=== PATIENT | male | born 1960 | race Caucasian/White ===

== ENCOUNTER 2024-10-03 06:29 | Inpatient (IN) | payer OTHER, SELFPAY ==
[2024-10-02 22:55] VITALS: BP 184/116
[2024-10-02 23:09] LABS: % Basophils 0.5 % (0-2); % Eosinophils 1.7 % (0-6); % Immature Granulocytes 0.5 % (0-0.5); % Lymphocytes 28.8 % (20.5-51.1); % Monocytes 10.3 % (1.7-9.3); % Neutrophils 58.2 % (42.2-75.2); Absolute Basophils 0.1 10^3/uL (0-0.2); Absolute Eosinophils 0.2 10^3/uL (0-0.7); Absolute Immature Granulocytes 0.1 10^3/uL (0-0.05); Absolute Lymphocytes 2.7 10^3/uL (1.2-3.4); Absolute Neutrophils 5.4 10^3/uL (1.4-6.5); Hematocrit 37.7 % (39.0-52.0); Hemoglobin 12.9 g/dL (13.0-18.0); Mean Corp Hgb Conc. 34.2 g/dL (33.0-37.0); Mean Corpuscular Volume 93.5 fL (80.0-94.0); Mean Platelet Volume 9.4 fL (7.4-10.4); Nucleated Red Blood Cells % 0 % (-); Platelet Count 230 10^3/uL (130-400); Red Blood Cell Count 4.03 10^6/uL (4.70-6.10); Red Cell Dist. Width 12.8 % (11.5-14.5); White Blood Cell Count 9.4 10^3/uL (4.8-10.8)
[2024-10-02 23:18] LABS: INR 0.99; PT 13.6 Sec (11.4-14.6)
[2024-10-02 23:19] LABS: APTT 26.4 Sec (23.4-35.0)
[2024-10-02 23:25] LABS: ALT (SGPT) 23 U/L (0-50); AST (SGOT) 24 U/L (17-59); Albumin 3.9 g/dl (3.5-5.0); Alkaline Phosphatase 64 U/L (38-126); Blood Urea Nitrogen 36 mg/dl (9-20); Calcium 9.3 mg/dl (8.4-10.2); Carbon Dioxide 28 mmol/L (22-30); Chloride 102 mmol/L (98-107); Glucose 179 mg/dl (70-99); Potassium 4.1 mmol/L (3.5-5.1); Sodium 137 mmol/L (135-145); Total Bilirubin 0.4 mg/dl (0.2-1.3); Total Protein 6.3 g/dl (6.3-8.2); eGFR > 60.00
[2024-10-02 23:33] LABS: Troponin I 0.012 ng/ml
[2024-10-03] VITALS (19 sets, daily range): BP systolic 15–164; BP diastolic 83–99; BMI 33.6
[2024-10-03] MEDS: PROTONIX IV 80 MG IV (03:22)
[2024-10-03] MEDS: PROTONIX 100 IV (03:23)
[2024-10-03 03:41] LABS: Hematocrit 37.8 % (39.0-52.0)
--- NOTE | 2024-10-03 03:58 | ED.GENMED ---
History of Present Illness
General
Chief Complaint: Chest Pain
Source: patient
Exam Limitations: none
Time Seen by Provider: 10/03/24 02:12
Nursing documentation reviewed up to this point in time: agreed with
History of Present Illness
History of Present Illness:
64-year-old male that presents with chest pain that awakened him from sleep. Patient has been having 'black tar-like bowel movements 'for the last day. Patient admits to heavy alcohol consumption. He states that yesterday he drank '8 beers and 8
shots'. On a light day he states he might drink 3 beers and 4 shots. He states that he drinks every day. He also takes NSAIDs such as ibuprofen for arthritic pain. Patient states that his bowel movements were soft and malodorous.
Past History
Past History
ED Past Medical History: None
ED Past Surgical History: Orthopedic
Social History
Tobacco: Non-smoker
Alcohol: None
Drug: None
Review of Systems
Review of Systems
Allergies reviewed?: Yes
All Other Systems: ROS reviewed and negative except as documented in HPI and ROS
Constitutional: Reports no symptoms
EENT: Reports no symptoms
Respiratory: Reports no symptoms
Cardiac: Reports chest pain
ABD/GI: Reports black stools
: Reports no symptoms
Musculoskeletal: Reports no symptoms
Skin: Reports no symptoms
Neurological: Reports no symptoms
Endocrine: Reports no symptoms
Hematologic/Lymphatic: Reports no symptoms
Psychiatric: Reports no symptoms
Phy Exam
General Physical Exam
General Presentation: mild distress
General age: appears stated age and appears older than age
General Skin: warm and dry
General Habitus: normal
General Mental: alert
General Hydration: appears well hydrated
ENT Exam
ENT Exam: EOMI, pharynx normal, neck supple and normocephalic
Eye Exam
Eye Exam: PERRL, cornea clear and conjunctiva normal
Cardiovascular Exam
Cardiovascular Exam: regular rate/rhythm
Pulmonary Exam
Pulmonary Exam: lungs clear, no respiratory distress, no rales, no crackles, no rhonchi, no stridor, no wheezing and no cough
Gastrointestinal Exam
Gastrointestinal Exam: normal bowel sounds, non tender, soft, no organomegaly, no pulsatile mass and distended
Palpation: generalized: Minimal tenderness
Rectal Exam: normal sphincter tone and soft stool
Stool: black
Guaiac Status: grossly bloody - positive and positive
Neurological Exam
Neurological Exam: alert, oriented x3, no motor deficits and speech normal
Musculoskeletal Exam
Musculoskeletal Exam: full ROM and no edema
Skin Exam
Skin Exam: normal color, warm/dry, no rash and no petechia
Psychiatric Exam
Psychiatric Exam: normal mood/affect
Scores
Heart Score for Chest Pain Patients
STEMI patient?: Not applicable
Course
Orders/Labs/Results
Orders:
Orders
10/02/24 22:52
EKG [Electrocardiogram (*1)] Urgent
Reason for Study: Chest Pain
EKG- Treatment ONCE
10/02/24 23:01
Type+Screen Urgent
Complete Blood Count/With Diff Urgent
Comprehensive Metabolic Panel Urgent
PTT Urgent
Prothrombin Time Urgent
Troponin I Urgent
10/02/24 23:20
ABO2 Urgent
BBK Wristband Number:
Associate notified that ABO2 has been ordered: [id number]
Date: 10/02/24
Time: 23:22
Expeditionary Fighting Vehicle Crewman ID: [id number]
10/03/24 03:04
IV Insert/Care/Rem.- Treatment PRN
Pantoprazole 80 mg/100 ml Nss [Protonix] 80 mg in 100 ml IV NOW
Pantoprazole [Protonix IV] 80 mg IV NOW STA
10/03/24 03:21
H&H Urgent
Troponin I Urgent
10/03/24 04:09
Octreotide [Sandostatin] 50 mcg IV NOW STA
10/03/24 04:10
IV Insert/Care/Rem.- Treatment PRN
10/03/24 05:00
Flush (0.9% Sodium Chloride) [Flush (Nss)] See Dose Instructions IV PER PROTOCOL
10/03/24 06:07
Admit/Transfer Patient As Directed
Co-Sign Provider:
Level of Care: Inpatient admission
Assign to:: Telemetry
Physician / Group: Cass Sargent
Transfer to: Telemetry
Diagnosis: GI Bleed
Reason for Telemetry: Other
Other Reason for Telemetry: GI Bleed
Date to Stop Telemetry: 10/05/24
Time to Stop Telemetry: 11:00
Reason for Hospitalization: IV medications
Expected length of stay greater than two midnights?: Yes
ELOS- Estimated Length of Stay in days: 2
I certify the patient meets the requirements for IP care: Yes
PRN Pain Medication Management As Directed
May give lesser potent ordered pain med per pt: Yes
preference::
Protocol:: Medication orders for pain may be administered in a
manner that supports deferring to patient preference
when the pt is:
- Requesting an ordered lesser potent pain medication.
Least to most potent pain medications are defined
as: acetaminophen < NSAID < tramadol < opioids
(morphine, oxycodone, hydromorphone).
- Requesting a lesser dose of the same medication IF
ORDERED.
- Requesting a less intrusive route of administration
if both routes are prescribed by the provider (PO <
IV).
10/03/24 06:08
Code Status As Directed
Resuscitation Status: Full Code
10/05/24 11:00
DC Protocol for Telemetry ONCE
Abnormal Lab Results
10/02/24 10/03/24
23:01 03:21
RBC 4.03 L 10^6/uL
(4.70-6.10)
Hgb 12.9 L g/dL
(13.0-18.0)
Hct 37.7 L % 37.8 L %
(39.0-52.0) (39.0-52.0)
MCH 32.0 H pg
(27.0-31.0)
Abs Immat Gran (auto) 0.1 H 10^3/uL
(0-0.05)
Absolute Monos (auto) 1.0 H 10^3/uL
(0.1-0.6)
Monocytes % 10.3 H %
(1.7-9.3)
BUN 36 H mg/dl
(9-20)
Glucose 179 H mg/dl
(70-99)
10/03/24 03:21
10/02/24 23:01
Vital Signs
Initial and Last Documented VS:
Initial Vital Signs
Temp Pulse Resp BP Pulse Ox
98.5 F 119 24 184/116 97
10/02/24 22:55 10/02/24 22:55 10/02/24 22:55 10/02/24 22:55 10/02/24 22:55
Last Documented Vital Signs
Temp Pulse Resp BP Pulse Ox
98.5 F 92 17 154/89 94
10/02/24 22:55 10/03/24 06:00 10/03/24 06:00 10/03/24 06:00 10/03/24 03:00
*Critical Care Note
Total Time (30-74mins, 75-104mins- exclusive of procedures): 40 (Critical care statement: A total of 40 minutes of critical care time was provided for this patient. This time is separate from time utilized to perform the aforementioned documented
procedures. Aggregate critical care time includes only time during which I was engaged in work directl)
Update Note
Update Note:
Blood consent signed by patient and is on the chart.
ED Attending Note
-
Portions of this chart may have been created with voice recognition software.� Occasional wrong word or��sound alike� substitutions may have occurred due to the inherent limitations of voice recognition software.
Discharge Plan
Departure
Patient Disposition: Admit
Date of Disposition: 10/03/24
Time of Disposition: 04:12
Admit to: ICU
Presentation/result/management discussed w/ accepting MD/DO: Hospitalist
Condition: Serious
Discharge Problem:
GI bleed, GI bleed due to NSAIDs, Heavy alcohol use, NSAID long-term use
Interventions
Interventions:
*Risk Screen - Suicide Last Done: 10/02/24 22:55
*General Assessment Last Done: 10/02/24 22:55
*Neglect/Abuse Screening Last Done: 10/02/24 22:55
*ED COVID-19 Vaccine History Last Done: 10/03/24 02:07
ED- Cardiac Assessment Last Done: 10/03/24 02:07
[2024-10-03] MEDS: SANDOSTATIN 50 MCG IV (04:21)
[2024-10-03 04:27] LABS: Troponin I 0.015 ng/ml
--- NOTE | 2024-10-03 05:54 | HPS.HSE ---
Family Physician
-
Family Physician: * NONE
Chief Complaint
-
Melena, hematemesis
History of Present Illness
Is a 64-year-old who denies any significant past medical history presenting to the emergency department with copious melena and episode of hematemesis.
Patient is a regular alcohol drinker, drinks usually about 3 beers and 3 shots nightly but recently had up to 8 shots during the festivities last night. Patient reported afterwards he was feeling well up until been waking up with some mild
abdominal discomfort. He felt he needed to spit up some time and then he had a bowel movement. He said he had a voluminous amount of black tarry stool. He denied feeling dizzy or lightheaded. Having seen this episode he was encouraged to come to
the emergency department. En route to the ED the patient vomited and he thought that he had hematemesis but it was not clear due to poor lighting. On arrival in the emergency department he had another voluminous melanotic bowel movement. He
reports mild bilateral lower quadrant abdominal discomfort. Denies any nausea at this time. Patient denies any prior history of GI bleed. He has no prior endoscopic colonoscopy. He does take NSAIDs regularly. He takes about 800 mg as much as
every 12 hours as needed for arthritis. He smokes tobacco. Denies any illicit drugs and denies any other anticoagulants.
In the ED he was afebrile, blood pressure was 139/87 with a pulse of 110. Was satting 98% on room air. Hemoglobin was 13 normal platelet. INR within normal limits. Electrolytes BUN/creatinine were within normal limits. BUN was relatively
elevated at 36 with a creatinine of 1.0. ECG shows a sinus tachycardia without any acute ST or T wave changes.
Medical History
Past Medical History
Past Medical History: Reports Other (Chronic osteoarthritis)
Past Surgical History: Reports None
Social History
Tobacco: Smoker (1 pack/day)
Alcohol: Daily
Drug: None
Personal: Single
Living: With Roomate
Employment: Retired
Family History
Family History: Not pertinent
Allergies / Home Medications
Allergies reflects when Allergies were last updated in [employer].
Home Medications with original date entered in [employer]
Allergy/Medication List:
Allergies
Allergy/AdvReac Type Severity Reaction Status Date / Time
bee venom protein (honey bee) Allergy Swelling Verified 01/23/20 18:23
Home Medications
ibuprofen 200 mg tablet 800 mg PO Q12 PRN pain 10/03/24
Review of Systems
-
Constitutional: Reports No Symptoms
EENT: Reports No Symptoms
Respiratory: Reports No Symptoms
Cardiac: Reports No Symptoms
Abdomen/GI: Reports Abdominal Pain and Black Stools
: Reports No Symptoms
Musculoskeletal: Reports No Symptoms
Skin: Reports No Symptoms
Neurological: Reports No Symptoms
Endocrine: Reports No Symptoms
Hematologic/Lymphatic: Reports No Symptoms
Psych: Reports No Symptoms
Physical Exam
Vital Signs
Vital Signs
Temp Pulse Resp BP Pulse Ox
98.5 F 101 15 139/87 94
10/02/24 22:55 10/03/24 05:00 10/03/24 05:00 10/03/24 05:00 10/03/24 03:00
Physical Exam
General: Well Developed, Well Nourished, No Apparent Distress and Comfortable
HEENT: NormoCephalic, Anicteric, Moist mucous membranes and Atraumatic
Respiratory: Clear
Cardiac: S1/S2
Breast: Deferred by me
GI: Soft, Non Tender, Non Distended and Normal Bowel Sounds
Rectal: Black and Hem Positive
Genito-urinary: Deferred by me
Musculoskeletal: No Clubbing, No Cyanosis and No Edema
Skin: Warm
Neuro: AO x 3 and Nonfocal/grossly intact
Hematologic/Lymphatic: No Lymphadenopathy
Psych: Calm
Laboratory Results
-
10/03/24 03:21
10/02/24 23:01
Laboratory Results
PT 13.6 Sec (11.4-14.6) 10/02/24 23:01
INR 0.99 10/02/24 23:01
APTT 26.4 Sec (23.4-35.0) 10/02/24 23:01
Total Bilirubin 0.4 mg/dl (0.2-1.3) 10/02/24 23:
AST 24 U/L (17-59) 10/02/24 23:
ALT 23 U/L (0-50) 10/02/24 23:01
Alkaline Phosphatase 64 U/L (38-126) 10/02/24 23:01
Troponin I 0.015 ng/ml 10/03/24 03:21
Data Reviewed
-
Medical Tests (Nuc Med, Echo, EKG etc): Image Personally Visualized and interpreted
Lab Data: Labs Reviewed by me
Old Records: Reviewed
Impression/Plan
-
IMPRESSION:
64-year-old with 1 day history of melena and possibly hematochezia. Black tarry stool. Heme positive black stool on guaiac exam. Hemoglobin is stable. Patient is hemodynamically stable. He has a history of alcohol and NSAID use. Suspect acute
gastritis but cannot rule out bleeding ulcer. He is currently hemodynamically stable and in no acute distress.
PLAN:
1. Upper GI bleed - Suspect acute gastritis versus gastric/duodenal ulcer.
- admit to telemetry
- type and screen and consented
- PPI IV gtt for now
- no h/o liver disease to suggest possible varices at this time
- h/h q 8 and transfuse for rapid Hgb drop or Hgb < 8
- NPO, ice chips and sips
- antiemetics and pain control
- GI consult
2. ETOH use - Denies h/o withdrawal. Drinks regularly. No evidence of acute intoxication or withdrawal at this point.
- low risk mas protocol
- check folate/b12
DVT PPX - SCD
Code status - Full Code
--- NOTE | 2024-10-03 07:22 | CON.GI ---
Consultation
-
Date/Time Consultation Requested: 10/03/24 07
Date/Time Consultation Performed: 10/03/24 08
Requesting Provider: Colin Bush DO
Performing Provider: GANESH Perdomo, Nubia Denise MD
Reason for Consultation: GI bleed
Medical History
Chief Complaint / HPI
Chief Complaint: GI bleed
History of Present Illness:
Pt is a 64yo with hx chronic osteoarthritis on chronic NSAIDs up to Ibuprofen 800mg BID taking several days per week, daily ETOH and tobacco use with onset of abdominal pain along with black tarry stools. On admission noted with hbg 12.9 with BUN
36 and normal INR and LFT's.
In review with patient noted dark stool Sunday and was thinking it was chocolate he ate. He then had further liquid black stool on 10/02 with dizziness prompting ER evaluation. Pt admits to recent change in bowel habits last 1-2 months thought
it may be ETOH related and mild abdominal pain. He did also vomit ? dark material prior to ER evaluation. He otherwise admits to some sinus symptoms but denies dysphagia, GERD, or constipation. No hx EGD or colonoscopy in past.
Past Medical History
Past Medical History: Other (chronic osteoarthritis, ETOH and tobacco abuse, ? undiagnosed sleep apnea, prior imaging with diverticulosis and tiny hepatic/renal lesion too small to characterize )
Social History
Tobacco: Smoker
Alcohol: Daily
Drug: Marijuana (several times per month )
Living: With Roomate
Employment: Not Employed
Family History
Family History: Other (brother with thyroid cancer )
Allergies / Home Medications
Allergy/AdvReac Type Severity Reaction Status Date / Time
bee venom protein (honey bee) Allergy Swelling Verified 01/23/20 18:23
�Medication �Instructions �Recorded
ibuprofen 200 mg tablet 800 mg PO Q12 PRN pain 10/03/24
Review of Systems
-
History Source: Patient
Constitutional: Reports No Symptoms
EENT: Reports No Symptoms
Respiratory: Reports Trouble Breathing (minimal )
Cardiac: Reports No Symptoms
Abdomen/GI: Reports Abdominal Pain, Nausea, Vomiting, Diarrhea, Constipated and Black Stools
: Reports No Symptoms
Musculoskeletal: Reports No Symptoms
Neurological: Reports Dizzy and Weakness
Endocrine: Reports No Symptoms
Hematologic/Lymphatic: Reports Bleeding
Vital Signs
Temp Pulse Resp BP Pulse Ox
98.5 F 92 17 154/89 94
10/02/24 22:55 10/03/24 06:00 10/03/24 06:00 10/03/24 06:00 10/03/24 03:00
Physical Exam
Exam
General: Well Developed, Well Nourished and No Apparent Distress
HEENT: Normocephalic and Anicteric
Respiratory: Clear
Cardiac: Regular Rhythm
GI: Soft, Non Distended and Tender (minimal )
Musculoskeletal: No Clubbing and No Cyanosis
Skin: Warm and Dry
Neuro: Awake, Alert and AO x 3
Psych: Calm
Results
WBC 9.4 10^3/uL (4.8-10.8) 10/02/24 23:01
Hgb 13.0 g/dL (13.0-18.0) 10/03/24 03:21
Hct 37.8 % (39.0-52.0) L 10/03/24 03:21
MCV 93.5 fL (80.0-94.0) 10/02/24 23:01
Plt Count 230 10^3/uL (130-400) 10/02/24 23:01
Absolute Neuts (auto) 5.4 10^3/uL (1.4-6.5) 10/02/24 23:01
PT 13.6 Sec (11.4-14.6) 10/02/24 23:01
INR 0.99 10/02/24 23:01
APTT 26.4 Sec (23.4-35.0) 10/02/24 23:
Sodium 137 mmol/L (135-145) 10/02/24 23:
Potassium 4.1 mmol/L (3.5-5.1) 10/02/24 23:
Chloride 102 mmol/L (98-107) 10/02/24 23:
Carbon Dioxide 28 mmol/L (22-30) 10/02/24 23:
BUN 36 mg/dl (9-20) H 10/02/24 23:
Creatinine 1.0 mg/dL (0.7-1.3) 10/02/24 23:
Calcium 9.3 mg/dl (8.4-10.2) 10/02/24 23:
Total Bilirubin 0.4 mg/dl (0.2-1.3) 10/02/24 23:
AST 24 U/L (17-59) 10/02/24 23:
ALT 23 U/L (0-50) 10/02/24 23:
Alkaline Phosphatase 64 U/L (38-126) 10/02/24 23:
Diagnostic Image Results:
Prior GI Procedures:
EGD: none
Colonoscopy: none
Assessment / Plan
-
Pt is a 64yo with hx chronic osteoarthritis on chronic NSAIDs up to Ibuprofen 800mg BID, daily ETOH and tobacco use with onset of abdominal pain along with black tarry stools. On admission noted with hbg 12.9 with BUN 36 and normal INR and LFT's.
-melena
-daily NSAID use for osteoarthritis
-daily ETOH and tobacco use
-minimal anemia on admission
-prior imaging 2020 with tiny hepatic and renal lesion
-diverticulosis
-? undiagnosed sleep apnea
PLAN:
Etiology of symptoms with concern for UGI bleeding- PUD, gastritis with NSAID/ETOH use vs other-- no hx liver disease and doubt liver related with normal platelets, INR and albumin on admission
plan for EGD today
NPO
trend hbg
PPI gtt
monitor for ETOH withdrawal
cont thiamine and folate
discussed ETOH/tobacco abstinence
discussed risk of PUD with NSAID use
check follow up US with prior liver lesion
eventual OP colonoscopy with no hx screening in past
-
-
Thank you for consultation and allowing me to participate in the patient's care. Please call the c python developer GI physician during the after hours with any questions or concerns.
--- NOTE | 2024-10-03 08:03 | EDRN ---
Patient states he smokes about a pack a day. Offered nicotine patch and patient states he can 'go a day without a cigarette.' Informed the patient that if he felt he needed a patch to let the nursing staff know to get an order for him. Verbalizes
understanding
[2024-10-03 08:04] LABS: Hematocrit 35.9 % (39.0-52.0); Hemoglobin 12.2 g/dL (13.0-18.0); Mean Corpuscular Hgb 32.1 pg (27.0-31.0); Mean Corpuscular Volume 94.5 fL (80.0-94.0); Mean Platelet Volume 9.7 fL (7.4-10.4); Platelet Count 208 10^3/uL (130-400); Red Cell Dist. Width 12.9 % (11.5-14.5); White Blood Cell Count 9.5 10^3/uL (4.8-10.8)
[2024-10-03 08:12] LABS: INR 1.01; Magnesium 1.9 mg/dl (1.6-2.3); PT 13.6 Sec (11.4-14.6)
[2024-10-03 08:13] LABS: APTT 29.3 Sec (23.4-35.0)
[2024-10-03] MEDS: THIAMINE INJECTION 200 MG IV (10:25)
[2024-10-03] MEDS: NSS (PRESERVATIVE FREE) 10 ML IV (10:36)
[2024-10-03] MEDS: PROTONIX IV 40 MG IV (10:37)
[2024-10-03] MEDS: FOLVITE 50.2 MG IV (10:43)
--- NOTE | 2024-10-03 10:54 | EDRN ---
0930 GI Lab called for report on the patient. Informed them that I had the medications to provide. They asked they be held until after the procedure. Medications were then sent to the unit patient was transferred to after his procedure. Packed with
his belongings by Hellen Mckay RN
--- NOTE | 2024-10-03 10:56 | SUR.PHASEI ---
patient in pacu post endoscopy procedure, awake and alert. c/o only of abdominal cramping, gas pains. Dr Denise spoke with patient - explain endo findings and follow up care. strongly encourage no alcohol, no caffeine, no smoking and follow up with
GI. Patient holding in pacu. no beds. Ordered meds started. Protonix gtt stopped and IV push protonix given. taking sips of water. Patient states he is going home today - not staying in hospital. dr Finch TT and notified that pt is in pacu
and wants to go home today. Will await Dr Finch's visit
[2024-10-03 11:32] LABS: Glycohemoglobin (HgbA1c) 5.7 % (4.0-5.6)
--- NOTE | 2024-10-03 12:07 | SUR.PHASEI ---
ate lunch tolerated well . vss, Dr Finch visits in pacu.
--- NOTE | 2024-10-03 12:29 | W.PN.HOSP.TC ---
Today's Communication/Plan
-
Discharge
Assessment / Plan
Assessment / Plan
64-year-old male with hematemesis and melena he drinks alcohol regularly about 3 beers and 3 shots nightly but had up to 8 shots during the holidays.
Seen in PACU. Patient was eating a sandwich. Feels good no abdominal pain
CVS: S1-S2 normal
Chest: CTA B/L
Abdomen: Soft, NT / Bowel sounds present
Extremities: No edema,
# GI bleed-suspect upper
Gastritis versus ulcer
Stop NSAID use.
Keep n.p.o.
IV fluids
GI consultation for EGD
May need colonoscopy as outpatient if EGD reveals a reason for his bleed
# Daily alcohol use
Patient needs to limit or stop-discussed with the patient
MSAS protocol
Thiamine
Check ultrasound with right hepatic lobe lesion found on an ultrasound in 2019-outpatient discussed with the patient
EGD 10/03/2024-normal esophagus. Erythematous mucosa in the antrum biopsied. 5 cm hiatal hernia. Erythematous duodenopathy.
PPI twice daily for 8 weeks and follow-up with GI
# Hyperglycemia -hemoglobin A1c 5.7
# Diverticulosis
# Smoker-cessation counseling
# DVT prophylaxis-SCDs
# Full code
Discussed with [facility]
Discussed with GI okay for discharge
Discussed with the patient regarding stopping alcohol use and also following up with an ultrasound of the abdomen
Anticipated Discharge: Today
Subjective/Interval History
-
Date of Service: October 03, 2024
Objective Data
-
Labs:
Laboratory Results
10/03/24 10/03/24 10/03/24
03:21 07:52 14:55
WBC 9.5
Hgb 13.0 12.2 L Pending
Hct 37.8 L 35.9 L Pending
Plt Count 208
PT 13.6
INR 1.01
APTT 29.3
10/03/24
22:55
WBC
Hgb Pending
Hct Pending
Plt Count
PT
INR
APTT
Vital Signs:
Vital Signs
Temp Pulse Resp BP Pulse Ox
98.1 F 100 14 140/97 94
10/03/24 09:49 10/03/24 12:15 10/03/24 12:15 10/03/24 12:00 10/03/24 12:15
--- NOTE | 2024-10-03 12:35 | W.DS.TRANS ---
Addendum entered and electronically signed by Maxwell Finch MD 10/04/24 08:27:
Dictation- [id number]
Original Note:
DC Summary - Plastic Finisher
-
Discharge Instructions:
Discharge Diagnosis/Procedures GI bleed
Diet As tolerated
Activity As tolerated
Driving Restrictions As prior to admission
Others Tests Ultrasound of the liver as discussed
Instructions:
Stand-Alone Forms:
Changes to Home Medications: Yes
Discharge Medications:
DC Medications w/original date entered in [employer]
pantoprazole 40 mg tablet,delayed release (Protonix) 40 mg PO BID Gastrointestinal issue #120 tabs 10/03/24
thiamine HCl (vitamin B1) 100 mg tablet 100 mg PO BID Supplement #30 tabs 10/03/24
Home Medication Changes
new
pantoprazole 40 mg tablet,delayed release (Protonix) 40 mg PO BID Gastrointestinal issue #120 tabs 10/03/24
thiamine HCl (vitamin B1) 100 mg tablet 100 mg PO BID Supplement #30 tabs 10/03/24
Pending Results: No
== END 2024-10-03 13:41 | disposition home or self-care (01) | DRG 379 ==
LOC: PACUI 06:29
PROVIDERS: Emergency Medicine; Nurse Practitioner Gerontology; ADMITTING PHYSICIAN Internal Medicine; ATTENDING PHYSICIAN Hospitalist; CONSULT PHYSICIAN Internal Medicine Gastroenterology; EMERGENCY PHYSICIAN Student in an Organized Health Care Education/Training Program
PROC: 0DB58ZX Excision of Esophagus, Via Natural or Artificial Opening Endoscopic, Diagnostic (ICD-10-PCS; 2024-10-03)
PROC: 0DB98ZX Excision of Duodenum, Via Natural or Artificial Opening Endoscopic, Diagnostic (ICD-10-PCS; 2024-10-03)
PROC: 0DB78ZX Excision of Stomach, Pylorus, Via Natural or Artificial Opening Endoscopic, Diagnostic (ICD-10-PCS; 2024-10-03)
DX: K26.4 Chronic or unspecified duodenal ulcer with hemorrhage (principal); K57.30 Diverticulosis of large intestine without perforation or abscess without bleeding; K92.0 Hematemesis; K92.1 Melena; K76.9 Liver disease, unspecified; F17.210 Nicotine dependence, cigarettes, uncomplicated; K44.9 Diaphragmatic hernia without obstruction or gangrene; R12 Heartburn; K31.89 Other diseases of stomach and duodenum; R73.9 Hyperglycemia, unspecified; M19.90 Unspecified osteoarthritis, unspecified site; F10.10 Alcohol abuse, uncomplicated; T39.315A Adverse effect of propionic acid derivatives, initial encounter; Y92.9 Unspecified place or not applicable; Z79.1 Long term (current) use of non-steroidal anti-inflammatories (NSAID); Z91.030 Bee allergy status; Z80.8 Family history of malignant neoplasm of other organs or systems
CPT/HCPCS: 88305; 80053; 83036; 83735; 84484; 85014; 85018; 85025; 85027; 85610; 85730; 86850; 86900; 86901; 88342; 93005; 96374; 96375; 99291